=== PATIENT | female | born 2000 | race Two or more races ===

== ENCOUNTER 2022-08-21 00:22 | Inpatient (IN) | payer OTHER ==
[~2022-08-21] VITALS: Ht 152.4 cm; Wt 60.3 kg
[2022-08-21] MEDS ORDERED: PRENATAL TABLE1 EAC1 PO (00:51)
== END 2022-08-23 09:55 | disposition home or self-care (01) | DRG 807 ==
LOC: LDR 00:22 → OB/GYN 06:03
PROVIDERS: ADMIT Specialist; ATTEND Specialist
PROC: 10E0XZZ Delivery of Products of Conception, External Approach (ICD-10-PCS; principal; 2022-08-21)
PROC: 0HQ9XZZ Repair Perineum Skin, External Approach (ICD-10-PCS; 2022-08-21)
PROC: 4A1HXCZ Monitoring of Products of Conception, Cardiac Rate, External Approach (ICD-10-PCS; 2022-08-21)
DX: O70.1 Second degree perineal laceration during delivery (principal); Z37.0 Single live birth; Z3A.38 38 weeks gestation of pregnancy; Z20.822 Contact with and (suspected) exposure to COVID-19